=== PATIENT | female | born 1935 | race Caucasian/White ===

== ENCOUNTER 2017-05-28 13:37 | Inpatient (IN) | payer MEDICARE ==
[~2017-05-28] VITALS: Ht 177.8 cm; Wt 71.0 kg
--- NOTE | 2017-05-30 00:28 | ER ---
ADMIT: 05/28/2017 RM/LOC: 428 [facility] MR#: [id number] [address] [facility] [address] [place], [place] [address] RONNELL HANDY [address] [place] [address] Emergency Room Report SEX: F AGE: 81 : 1935 DATE: 05/28/2017 TIME: 1337 hours. Please refer to my T-sheet for complete H and P. HISTORY OF PRESENT ILLNESS: Briefly, the patient is an 81-year-old, who comes in with a high fever. Her daughter brought her in. She was not going to come in. She has been having problems urinating for the last few days. She took a few Macrobid she had at home, but she does not like coming in. She has been nauseous, not eating or drinking very well, lives at home alone. Her daughter said she found her just lying in bed with 103 fever. PHYSICAL EXAMINATION: VITAL SIGNS: Here, her blood pressure is 120/61, pulse is 110, respirations 25, temp of 102.4, sats 90% on room air. GENERAL: No acute distress. HEENT: Grossly normal. LUNGS: Slightly coarse, little wheezes. HEART: Regular. ABDOMEN: Soft. Mildly tender, suprapubic. SKIN: No rash. EMERGENCY DEPARTMENT COURSE: We did the whole sepsis pathway as she did look slightly ill. CBC was normal except hemoglobin 11.4. Chemistries normal except potassium 2.5, glucose 122, phosphorus is 1.2. Coags are normal. UA was still pending. CK 107, CK-MB was normal. Troponin was slightly up at 0.445. Lactate was 1.9. Chest x-ray reveals right lower lobe atelectasis. We gave her the fluid bolus after blood cultures and started antibiotics. I talked to Dr. Navarrete, on for Dr. Ludwig, will admit to the hospital. ASSESSMENT: 1. Sepsis. 2. Urinary tract infection. 3. Dehydration. 4. Hypophosphatemia. PLAN: Admit to the hospital. Afshin Rodriguez MD/ jermaine JOB #: [id number] CC: Alexis Ludwig DO, Attending Physician Alexis Ludwig DO, Family Physician
[2017-05-31] MEDS ORDERED: ALENDRONATE SOD70 MG PO (12:32)
[2017-05-31] MEDS ORDERED: ASPIR-LOW81 MG PO (12:33)
[2017-05-31] MEDS ORDERED: CALCIUM 500 +1 EAC1 PO (12:33)
[2017-05-31] MEDS ORDERED: SYMBICORT 16010.2 GM IH (12:33)
[2017-05-31] MEDS ORDERED: [UNRECOGNIZED DRUG - OTHER] TP (12:34)
[2017-05-31] MEDS ORDERED: VITAMIN D-32000 UNI1 PO (12:34)
[2017-05-31] MEDS ORDERED: DOXEPIN HCL50 MG PO (12:35)
[2017-05-31] MEDS ORDERED: CYANOCOBAL1000 MCG/1 IM (12:35)
[2017-05-31] MEDS ORDERED: NEURONTIN DPS600 MG PO (12:36)
[2017-05-31] MEDS ORDERED: FLONASE 0.05% D16 GM NS (12:36)
[2017-05-31] MEDS ORDERED: LORATADINE10 M2 PO (12:37)
[2017-05-31] MEDS ORDERED: LIDOCAINE 5% PATCH TD (12:37)
[2017-05-31] MEDS ORDERED: LOPRESSOR DPS50 MG PO (12:37)
[2017-05-31] MEDS ORDERED: ZOCOR80 MG PO (12:38)
[2017-05-31] MEDS ORDERED: MONTELUKAST SOD10 MG PO (12:38)
[2017-05-31] MEDS ORDERED: DAILY MULTIPLE1 EAC1 PO (12:38)
[2017-05-31] MEDS ORDERED: NITROSTAT0.4 MG SL (12:38)
[2017-05-31] MEDS ORDERED: TRAZODONE HCL50 MG PO (12:39)
[2017-05-31] MEDS ORDERED: TRIAMCINOLONE454 GM TP (12:39)
[2017-05-31] MEDS ORDERED: EFFEXOR XR150 MG PO (12:40)
[2017-05-31] MEDS ORDERED: LEVAQUIN DPS500 MG PO (12:40)
[2017-05-31] MEDS ORDERED: DUONEB DPS3 ML IH (12:40)
[2017-05-31] MEDS ORDERED: COLACE-DPS100 MG PO (12:40)
[2017-05-31] MEDS ORDERED: TYLENOL DPS325 MG PO (12:41)
[2017-05-31] MEDS ORDERED: MAALOX DPS30 ML PO (12:41)
[2017-05-31] MEDS ORDERED: TEMOVATE O.05%15 GM TP (12:46)
--- NOTE | 2017-06-07 07:55 | HP ---
ADMIT: 05/28/2017 RM/LOC: [address] [facility] MR#: [id number] [address] [place], [place] [address] RONNELL HANDY [address] [place] [address] History and Physical SEX: F AGE: 81 : 1935 DATE OF SERVICE: REASON FOR HOSPITALIZATION: Fever, UTI, and sepsis. HISTORY OF PRESENT ILLNESS: This is an 81-year-old female patient who presented reporting that she had a temperature of 106 at home. Her daughter reports that with this fever, she was confused and listless. On presentation to the emergency room, she was evaluated and promptly found to have a urinary tract infection, subsequently admitted for early sepsis and UTI. PAST MEDICAL HISTORY: She has a past medical history of COPD, osteoporosis, chronic pain, depression, hypertension, hyperlipidemia, DJD, B12 deficiency. SOCIAL HISTORY: An extensive history of smoking. MEDICATIONS: 1. Albuterol. 2. Aspirin. 3. Alendronate. 4. Budesonide. 5. Calcium. 6. Camphor topical. 7. Vitamin D3. 8. Clobetasol topical. 9. B12. 10.Diclofenac. 11.Doxepin. 12.Fluticasone. 13.Gabapentin. 14.Lidocaine. 15.Loratadine. 16.Metoprolol. 17.Montelukast. 18.Multivitamin. 19.Nitro sublingual. 20.Salsalate. 21.Simvastatin. 22.Trazodone. 23.Triamcinolone. 24.Venlafaxine. For specifics of dosing, please refer to her admission orders. FAMILY HISTORY: Noncontributory. REVIEW OF SYSTEMS: The patient reports that she has been having some gross hematuria. We had treated her on an outpatient basis with Macrodantin 3 weeks ago for urinary symptoms and she thought that they were improved after starting this therapy, but then relapsed over the last 48 hours. She denies any chest pain, but has had some shortness of breath, cough, and some sputum ADMIT: 05/28/2017 RM/LOC: [address] [facility] MR#: [id number] [address] [address] RONNELL HANDY [address] [place] [address] History and Physical SEX: F AGE: 81 : 1935 production. No nausea, vomiting, diarrhea, or constipation. PHYSICAL EXAMINATION: VITAL SIGNS: Blood pressure currently 114/47, temperature 98.9. GENERAL: She is pleasant, alert, and oriented. She has diminished breath sounds throughout and some faint wheezes in the bases posteriorly. CARDIOVASCULAR: Her heart is regular. ABDOMEN: Soft. EXTREMITIES: She has no peripheral edema. LABORATORY DATA: Urinalysis shows moderate bacteria, and culture early evaluation reveals E. coli. Her BUN is 18, creatinine is 1.0. Potassium at presentation was hypokalemic at 3.5 and with replacement now 4.1. Hemoglobin is 9.9, down with hydration. Chest x-ray, bibasilar opacities. IMPRESSION: 1. Hypokalemia, resolved. 2. Anemia, dilutional, superimposed upon chronic anemia. 3. Urinary tract infection. 4. Sepsis. 5. Early pneumonia with underlying chronic obstructive pulmonary disease. PLAN: Admit. Broad-spectrum antibiotic therapy. Await cultures. Add nebulized treatments. Follow her chest x-ray and labs. Her CK and troponins were slightly elevated at presentation, probably related to demand ischemia from her sepsis and fever; we will repeat these as well. Alexis Ludwig DO/ modl JOB #: [id number] CC: Alexis Ludwig, Attending Physician Alexis Ludwig, Family Physician
== END 2017-05-31 10:55 | disposition home or self-care (01) | DRG 872 ==
LOC: ER 13:37 → 4PCU 15:27
PROVIDERS: ADMIT Internal Medicine
DX: A41.51 Sepsis due to Escherichia coli [E. coli] (principal); N39.0 Urinary tract infection, site not specified; E83.39 Other disorders of phosphorus metabolism; J44.9 Chronic obstructive pulmonary disease, unspecified; E86.0 Dehydration; M81.0 Age-related osteoporosis without current pathological fracture; E87.6 Hypokalemia; G89.29 Other chronic pain; D64.9 Anemia, unspecified; F32.9 Major depressive disorder, single episode, unspecified; I10 Essential (primary) hypertension; E78.5 Hyperlipidemia, unspecified; M19.90 Unspecified osteoarthritis, unspecified site; E53.8 Deficiency of other specified B group vitamins; F17.200 Nicotine dependence, unspecified, uncomplicated; Z79.82 Long term (current) use of aspirin